=== PATIENT | female | born 1970 | race Caucasian/White ===

== ENCOUNTER 2024-09-02 21:06 | Inpatient (IN) | payer BC ==
[~2024-09-02] VITALS: Ht 172.7 cm; Wt 83.2 kg
[~2024-09-02 21:06] MED LIST: CITA10TA17 PO; GABA-530 PO; LITH150C8 PO; QUET100T34 PO
[2024-09-02] MEDS ORDERED: GABA-530 PO (21:41)
[2024-09-02] MEDS ORDERED: VALB60CA PO (21:41)
[2024-09-02] MEDS ORDERED: QUET-1 PO (22:02)
[2024-09-02] MEDS ORDERED: CITA30CA PO (22:02)
[2024-09-02 22:13] LABS: BILIRUBIN,URINE NEGATIVE (Neg); CLARITY,URINE CLEAR (Clear); COLOR,URINE YELLOW (Yellow); GLUCOSE, URINE NEGATIVE (Neg); KETONES,URINE NEGATIVE (Neg); LEUKOCYTE ESTERASE ,URINE NEGATIVE (Neg); NITRITES, URINE NEGATIVE (Neg); OCCULT BLOOD,URINE NEGATIVE (Neg); PH,URINE 5.5 (4.8-8.0); PROTEIN,URINE NEGATIVE (Neg); UROBILINOGEN,URINE 0.2 E.U/dL (0.2-1.0)
[2024-09-02 22:13] LABS: BASOPHILS % (AUTO) 0.3 % (0-1); EOSINOPHILS # (AUTO) 0.1 X10'3 (0-0.9); EOSINOPHILS % (AUTO) 0.7 % (0-6); HEMATOCRIT 45.4 % (35.0-45.0); HEMOGLOBIN 15.5 g/dl (12.0-16.0); LYMPHOCYTES % (AUTO) 16.2 % (21-51); MEAN CORPUSCULAR HEMOGLOBIN 31.3 PG (27.0-31.0); MEAN CORPUSCULAR HGB CONC 34.2 g/dL (33.0-36.5); MEAN CORPUSCULAR VOLUME 91.6 FL (78-98); MEAN PLATELET VOLUME 9.7 FL (7.4-10.4); MONOCYTES # (AUTO) 0.8 X10'3 (0-0.9); MONOCYTES % (AUTO) 6.4 % (2-12); NEUTROPHILS # (AUTO) 9.6 X10'3 (1.8-7.7); NEUTROPHILS % (AUTO) 76.4 % (42-75); PLATELET COUNT 303 X10'3 (140-440); RED BLOOD COUNT 4.95 X10'6 (4.20-5.60); WHITE BLOOD COUNT 12.5 X10'3 (4.5-11.0)
[2024-09-02 22:21] LABS: UA COLLECTION TYPE VOIDED
[2024-09-02 22:22] LABS: ALANINE AMINOTRANSFERASE 30 U/L (12-78); ALBUMIN 4.4 G/DL (3.4-5.0); ALBUMIN/GLOBULIN RATIO 1.3 (1.1-1.5); ALKALINE PHOSPHATASE 75 IU/L (46-116); ANION GAP 13 (8-16); ASPARTATE AMINO TRANSFERASE 21 U/L (10-37); BILIRUBIN,TOTAL 0.5 MG/DL (0.1-1.0); BLOOD UREA NITROGEN 15 MG/DL (7-18); CALCIUM 9.8 MG/DL (8.5-10.1); CHLORIDE 108 MMOL/L (99-107); CREATININE 0.88 MG/DL (0.40-0.90); ETHANOL < 10 MG/DL (<10); GLUCOSE 100 MG/DL (70-104); POTASSIUM 3.9 MMOL/L (3.5-5.1); SODIUM 142 MMOL/L (135-145); TOTAL CARBON DIOXIDE 20.8 MMOL/L (24-32); TOTAL PROTEIN 7.7 G/DL (6.4-8.2); eCRCL 76 ML/MIN; eGFR 68 ML/MIN
[2024-09-02 22:32] LABS: URINE AMPHETAMINE SCREEN NEGATIVE (Neg); URINE BARBITUATE SCREEN NEGATIVE (Neg); URINE BENZODIAZEPINES SCREEN NEGATIVE (Neg); URINE CANNABINOID SCREEN NEGATIVE (Neg); URINE COCAINE SCREEN NEGATIVE (Neg); URINE METHADONE SCREEN NEGATIVE (Neg); URINE OPIATE SCREEN NEGATIVE (Neg); URINE PHENCYCLIDINE SCREEN NEGATIVE (Neg)
[2024-09-02] MEDS: LORazepam 1 MG tablet PO ONE (23:25)
[2024-09-03] MEDS: lithium carbonate 150mg capsule PO SCH (00:17)
[2024-09-03] MEDS: quetiapine 100mg tablet PO SCH (00:40)
[2024-09-03] MEDS: gabapentin 300mg capsule PO SCH ×2 (00:40→20:06)
[2024-09-03] MEDS: CITALOpram 10mg tablet PO SCH (09:35)
[2024-09-03 13:10] VITALS: BP 96/61; PULSE 76; RESP 12; TEMP 97.6; O2SAT 99
[2024-09-03 14:01] VITALS: RESP 12; O2SAT 99
[2024-09-03] MEDS: gabapentin 300mg capsule PO ONE (14:58)
[2024-09-03] MEDS ORDERED: gabapentin 400mg capsule PO PRN (15:55)
[2024-09-03] MEDS ORDERED: gabapentin 300mg capsule PO SCH (16:00)
[2024-09-03] MEDS ORDERED: acetaminophen 325mg tablet PO PRN ×2 (18:40)
[2024-09-03] MEDS ORDERED: mag hydrox/Alum hydrox/simeth 30ml oral suspension PO PRN (18:40)
[2024-09-03] MEDS ORDERED: magnesium hydroxide 30ml (MOM) UD suspension PO PRN (18:40)
[2024-09-03] MEDS ORDERED: loperamide 2mg capsule PO PRN (18:40)
[2024-09-03 19:27] VITALS: RESP 20; O2SAT 96
[2024-09-03 20:00] VITALS: PULSE 72; RESP 20; TEMP 98; O2SAT 96
[2024-09-04 07:00] VITALS: RESP 12; O2SAT 92
[2024-09-04 08:00] VITALS: BP 96/49; PULSE 56; RESP 12; TEMP 97.6; O2SAT 92
[2024-09-04] MEDS: lithium carbonate 150mg capsule PO ONE (12:48)
[2024-09-04] MEDS: gabapentin 300mg capsule PO PRN (15:16)
[2024-09-04 19:00] VITALS: BP 119/63; PULSE 74; RESP 16; TEMP 98.4; O2SAT 96
[2024-09-04] MEDS: lithium carbonate 150mg capsule PO SCH (20:14)
[2024-09-04] MEDS: gabapentin 400mg capsule PO SCH (20:14)
[2024-09-05 07:17] VITALS: BP 104/56; PULSE 60; RESP 16; TEMP 98.2; O2SAT 93
[2024-09-05 19:30] VITALS: BP 130/58; PULSE 71; RESP 18; TEMP 97.6; O2SAT 96
[2024-09-06 07:30] VITALS: BP 106/53; PULSE 58; RESP 13; TEMP 98.1; O2SAT 96
[2024-09-06 10:01] LABS: BASOPHILS # (AUTO) 0.1 X10'3 (0-0.2); BASOPHILS % (AUTO) 0.7 % (0-1); EOSINOPHILS # (AUTO) 0.2 X10'3 (0-0.9); EOSINOPHILS % (AUTO) 2.1 % (0-6); HEMATOCRIT 42.9 % (35.0-45.0); HEMOGLOBIN 14.8 g/dl (12.0-16.0); LYMPHOCYTES # (AUTO) 1.8 X10'3 (1.1-4.8); LYMPHOCYTES % (AUTO) 21.4 % (21-51); MEAN CORPUSCULAR HEMOGLOBIN 31.3 PG (27.0-31.0); MEAN CORPUSCULAR HGB CONC 34.4 g/dL (33.0-36.5); MEAN CORPUSCULAR VOLUME 90.8 FL (78-98); MEAN PLATELET VOLUME 9.3 FL (7.4-10.4); MONOCYTES # (AUTO) 0.7 X10'3 (0-0.9); MONOCYTES % (AUTO) 8.7 % (2-12); NEUTROPHILS # (AUTO) 5.7 X10'3 (1.8-7.7); NEUTROPHILS % (AUTO) 67.1 % (42-75); PLATELET COUNT 239 X10'3 (140-440); RED BLOOD COUNT 4.72 X10'6 (4.20-5.60); RED CELL DISTRIBUTION WIDTH 13.2 % (11.5-14.5); WHITE BLOOD COUNT 8.5 X10'3 (4.5-11.0)
[2024-09-06] MEDS ORDERED: gabapentin capsule PO (10:37)
[2024-09-06] MEDS ORDERED: GABA-535 PO (10:37)
[2024-09-06] MEDS ORDERED: LITH150C8 PO (10:37)
== END 2024-09-06 14:17 | disposition home or self-care (01) | DRG 885 ==
LOC: ER 21:07 → ADULT MH 09-03 12:00 → UNDOADMIN 09-03 12:00 → ADULT MH 09-03 13:10 → ER 09-03 13:14
PROVIDERS: ADMIT Psychiatry & Neurology Psychiatry; ATTEND Psychiatry & Neurology Psychiatry
PROC: GZHZZZZ Group Psychotherapy (ICD-10-PCS; principal; 2024-09-04)
PROC: GZ51ZZZ Individual Psychotherapy, Behavioral (ICD-10-PCS; 2024-09-04)
DX: F31.9 Bipolar disorder, unspecified (principal); R45.851 Suicidal ideations; F13.20 Sedative, hypnotic or anxiolytic dependence, uncomplicated; D72.829 Elevated white blood cell count, unspecified; F41.0 Panic disorder [episodic paroxysmal anxiety]; K21.9 Gastro-esophageal reflux disease without esophagitis; Z20.822 Contact with and (suspected) exposure to COVID-19; E66.3 Overweight; F41.1 Generalized anxiety disorder; Z82.62 Family history of osteoporosis; Z83.3 Family history of diabetes mellitus; Z79.899 Other long term (current) drug therapy; Z80.3 Family history of malignant neoplasm of breast; Z68.27 Body mass index [BMI] 27.0-27.9, adult
CPT/HCPCS: 36415; 80053; 80178; 80305; 80320; 81003; 83036; 84443; 85025; 87081; 87811; 99285

== ENCOUNTER 2025-02-18 23:06 | Emergency (ER) | payer BC ==
[~2025-02-18] VITALS: Ht 172.7 cm; Wt 86.6 kg
[~2025-02-18 23:06] MED LIST changes: -CITA10TA17 PO; +CITA30CA PO; -GABA-530 PO; +GABA-535 PO; +QUET-1 PO; -QUET100T34 PO; +VALB60CA PO
[2025-02-18 23:16] VITALS: TEMP 97.3
--- NOTE | 2025-02-19 00:59 | Physician Documentation ---
History of Present Illness ~ Chief Complaint: Anxiety Stated Complaint: ANXIETY/SI Time Seen by MD: 00:08 Primary Medical Doctor: Psych through Dr. Glover's office Source: patient Exam Limitations: no limitations HPI Chief Complaint: Panic attack Caveat: None Independent Historians: Paramedics History of Present Illness: Patient is a 54-year-old woman who comes in complaining of severe panic attack that would not go away. Patient's symptoms seemed to have resolved upon arrival. The patient had told the paramedics that she was suicidal. However she is denying suicidal thoughts at this time and she states that she feels safe to go home. She is appreciative of me asking. Patient smiles during her exam. She does not appear to be in any acute distress at this time. Patient states that she felt dizzy and short of breath. Patient states that she felt hot and that she often feels hot and this makes her anxious resulting in anxiety and sometimes panic attacks. Review of systems: All systems were reviewed and are negative except for what is indicated in the history of present illness. Past Medical History: Bipolar illness, anxiety Past Surgical History: Noncontributory Social History: No tobacco use, no alcohol use, no drug use Medications: Reviewed as documented Nursing Notes Allergies: Reviewed as documented in Nursing Notes Medication Reconciliation Allergies: Coded Allergies: No Known Allergies (Unverified , 08/06/24) Scheduled Citalopram Hydrobromide (Citalopram HBr), 30 MG PO DAILY, (Reported) Gabapentin (Gabapentin), 1 CAP PO TID, (Reported) [place] Carbonate (LITHIUM CARBONATE capsule), 300 MG PO BID Quetiapine Fumarate* (Seroquel*), 3 TAB PO HS, (Reported) Valbenazine Tosylate (Ingrezza), 1 CAP PO DAILY, (Reported) Past Medical History Patient History: FH: breast cancer GRANDFATHER OR GRANDMOTHER FH: diabetes mellitus FATHER FH: osteoporosis MOTHER Review of Systems All Other Systems at this time: Reviewed and Negative ROS Patient denies any other acute symptoms other than above. All other systems are negative Physical Exam Vital Signs: RN Vital Signs have been reviewed: Yes, Temperature: 97.3, Source: Oral, Heart Rate: 79, Respiratory Rate: 15, BP: 106/62, Pulse Oximetry: 96, [place] ht: 86.600 Pulse Oximetry Reflects: adequate oxygenation Physical Exam General Appearance: No distress HEENT: Normal OP, moist oral mucosa, PERRL, EOMI Neck: supple, normal ROM, trachea midline Pulmonary: No respiratory distress, CTA, BS equal Cardiac: RRR, no murmur, rub or gallop, GI: nondistended, soft, nontender, normal bowel sounds, no guarding, no rebound Extremities: normal ROM, no swelling, non-tender Skin: intact, dry, warm, no rashes Neuro: AAOx3, speech is clear, no focal motor weakness Psych: normal affect, good eye contact, no apparent hallucination, normal speech Progress Results/Orders Results/Orders Completed Orders - ANAYA THORNTON MD Zolpidem Tablet (Ambien Tablet) (02/19/25 00:30) Vital Signs 02/18/25 23:16 Temp 97.3 Pulse 79 Resp 15 B/P (MAP) 106/62 Pulse Ox 96 Medical Decision Making Findings Differential diagnosis includes but is not limited to: ANXIETY, PANIC ATTACK Emergency department course/medical decision-making: Patient is a 54-year-old woman with anxiety and bipolar illness who presents with having had an anxiety/panic attack that lasted for hours and would not go away. Patient is feeling better now. Patient's psychiatric exam is unremarkable. Patient is currently asymptomatic. Patient has asked for something more for her anxiety. Patient is given Ambien 10 mg p.o.. Patient does not require any lab work or testing. Patient does not meet 1799 criteria. Patient is stable for discharge. Departure Time of Disposition: 00:55 Disposition: 01 HOME / SELF CARE / HOMELESS Impression: Primary Impression: Panic attack Condition: Improved Discharge Instructions: Panic Attack Additional Instructions: FOLLOW UP WITH YOUR DOCTOR AND PSYCHIATRIST NEEDED Education Educated: Patient Educated regarding: diagnosis, treatment Signature Scribe Signature: No scribe Attestation: No scribe ANAYA THORNTON MD Feb 19, 2025 00:58
[2025-02-19] MEDS: zolpidem 5mg tablet PO ONE (01:56)
[2025-02-19 01:58] VITALS: BP 108/72; PULSE 74; RESP 15; O2SAT 96
== END 2025-02-19 02:02 | disposition home or self-care (01) ==
LOC: ER 23:07
DX: F41.0 Panic disorder [episodic paroxysmal anxiety] (principal); F31.9 Bipolar disorder, unspecified
CPT/HCPCS: 99283

== ENCOUNTER 2025-03-04 00:31 | Emergency (ER) | payer BC ==
[~2025-03-04] VITALS: Ht 172.7 cm; Wt 85.6 kg
[2025-03-04 00:37] VITALS: BP 98/56; PULSE 87; RESP 17; O2SAT 98
--- NOTE | 2025-03-04 01:42 | Physician Documentation ---
HPI ~ General Chief Complaint: Medication Request Stated Complaint: PANICK ATTACT Time Seen by MD: 01:41 OK to notify your PCP?: Yes Primary Medical Doctor: Psych through Dr. Glover's office Source: patient, RN/, RN notes reviewed, old records Mode of Arrival: POV Exam Limitations: no limitations History of Present Illness HPI Comments 54 year old female with history of anxiety, suicidal ideation, and panic attacks seen in bed 19 presents to the emergency department seeking medication to help her sleep. She states hat she had been having an anxiety attack earlier at 1800. During this she states she swallowed lots of air and she cannot burp it up which is stressing her out more as she is concerned about distension. Patient denies any other associated symptoms at this time. Patient denies any other alleviating or exacerbating factors. Medication Reconciliation Allergies: Coded Allergies: No Known Allergies (Unverified , 08/06/24) Scheduled Citalopram Hydrobromide (Citalopram HBr), 30 MG PO DAILY, (Reported) Gabapentin (Gabapentin), 1 CAP PO TID, (Reported) [place] Carbonate (LITHIUM CARBONATE capsule), 300 MG PO BID Quetiapine Fumarate* (Seroquel*), 3 TAB PO HS, (Reported) Valbenazine Tosylate (Ingrezza), 1 CAP PO DAILY, (Reported) Past Medical History Past Medical History: *PSYCH*, Anxiety Patient History: FH: breast cancer GRANDFATHER OR GRANDMOTHER FH: diabetes mellitus FATHER FH: osteoporosis MOTHER Review of Systems All Other Systems at this time: Reviewed and Negative ROS As stated above in the HPI, otherwise all systems are reviewed and negative. Physical Exam Physical Exam Vital Signs: Temperature: 97.9, Source: Temporal, Heart Rate: 87, Respiratory Rate: 17, BP: 98/56, Pulse Oximetry: 98, Weight: 85.600 Oxygen Flow Rate: 0 Pulse Oximetry Reflects: adequate oxygenation Physical Exam General: The patient is well developed, well nourished, nontoxic appearing and is in no acute distress. Skin: [place], warm and dry with no rashes. HEENT: Head was normocephalic and atraumatic. Eyes - pupils equal, round, reactive to light and accommodation. Extraocular movements were intact. Conjunctivae were nonicteric. Ears - bilateral tympanic membranes were normal. The mouth and oropharynx were clear with moist mucous membranes. There were no pharyngeal exudates or erythema. Neck: Supple and nontender. There was no jugular venous distention, lymphadenopathy, thyromegaly or masses. Chest: Clear to auscultation bilaterally without wheezes, rales or rhonchi. No accessory muscle use. No dullness to percussion. Heart: Rate regular and rhythmic. S1, S2. No murmurs. Palpation of the chest wall was normal. No rubs or thrills. Abdomen: Soft, nontender and nondistended. Positive bowel sounds. No guarding or rebound. No hepatosplenomegaly or palpable masses. Extremities: No cyanosis, clubbing or edema. The patient moves all extremities. Pulses were equal and symmetric. Neurologic: Cranial nerves II-XII were intact. Sensation was intact to light touch throughout. Motor strength was 5/5 in all four extremities. Deep tendon reflexes were intact in both upper and lower extremities. Psychologic: The patient was oriented to person, place and time. The patient demonstrated appropriate judgement and insight. Progress Results/Orders Results/Orders Vital Signs 03/04/25 00:37 Temp 97.9 Pulse 87 Resp 17 B/P (MAP) 98/56 Pulse Ox 98 O2 Flow Rate 0 Departure Time of Disposition: 01:50 Disposition: 01 HOME / SELF CARE / HOMELESS Impression: Primary Impression: Panic attack Additional Impression: Insomnia Condition: Stable Discharge Instructions: Medical Screening Exam, Panic Attack, [id number] Referrals: NO PRIMARY CARE PROVIDER (PCP) Education Educated: Patient Educated regarding: diagnosis, treatment, prognosis, need for follow up Signature Scribe Signature: Scribed for Jerome Guerrero MD by Roman Leos . 03/04/25 01:50 Attestation: The note accurately reflects work and decisions made by me.Jerome Guerrero MD 03/04/25 01:42 JEROME GUERRERO MD Mar 04, 2025 01:42 ROMAN SHEPHERD Mar 04, 2025 01:50
[2025-03-04] MEDS: zolpidem 5mg tablet PO ONE (02:03)
[2025-03-04 02:07] VITALS: TEMP 97.9
== END 2025-03-04 02:09 | disposition home or self-care (01) ==
LOC: ER 00:32
DX: F41.0 Panic disorder [episodic paroxysmal anxiety] (principal); G47.00 Insomnia, unspecified; Z79.899 Other long term (current) drug therapy
CPT/HCPCS: 99283

== ENCOUNTER 2025-03-19 17:25 | Emergency (ER) | payer BC ==
[~2025-03-19] VITALS: Ht 172.7 cm; Wt 86.4 kg
--- NOTE | 2025-03-19 18:26 | Physician Documentation ---
History of Present Illness ~ Chief Complaint: Anxiety Stated Complaint: "I AM HAVING A PANIC ATTACK AND I NEED A DR NOW" Time Seen by MD: 17:43 OK to notify your PCP?: Yes Primary Medical Doctor: Psych through Dr. Glover's office Source: patient Mode of Arrival: POV Exam Limitations: no limitations HPI 54-year-old female who is brought in by a neighbor due to having a panic attack. Patient reports that she normally takes Ambien for her panic attacks but would be willing to take Ativan. She states she currently is out of her Amb ien right now which is why she was unable to take it to abort her panic attack symptoms on her own at home. She is hoping to get an appointment with her psychiatrist this week to get a refill of her Ambien. She states she last took the Ambien two weeks ago when she had her last panic attack. No depression, SI or HI. Medication Reconciliation Allergies: Coded Allergies: No Known Allergies (Unverified , 03/19/25) Scheduled Citalopram Hydrobromide (Citalopram HBr), 30 MG PO DAILY, (Reported) Gabapentin (Gabapentin), 1 CAP PO TID, (Reported) [place] Carbonate (LITHIUM CARBONATE capsule), 300 MG PO BID Quetiapine Fumarate* (Seroquel*), 3 TAB PO HS, (Reported) Valbenazine Tosylate (Ingrezza), 1 CAP PO DAILY, (Reported) Past Medical History Past Medical History: *PSYCH*, Anxiety Patient History: FH: breast cancer GRANDFATHER OR GRANDMOTHER FH: diabetes mellitus FATHER FH: osteoporosis MOTHER Review of Systems All Other Systems at this time: Reviewed and Negative Physical Exam Vital Signs: Temperature: 97.5, Source: Temporal, Heart Rate: 115, Respiratory Rate: 18, BP: 135/83, Pulse Oximetry: 99, Weight: 86.360 Oxygen Flow Rate: 0 Physical Exam General Appearance: Alert, WD/WN. NAD. HEENT: NCAT, PERRL, EOMI. Neck: Supple, trachea midline. Cardiovascular: RRR. No m/r/g. Lungs: CTAB. Breathing unlabored Extremities: Normal inspection. No edema. Skin: Warm/dry, normal color Neurological: Alert and oriented x4, normal gait. Psychiatric: Affect congruent with mood. Progress Results/Orders Results/Orders Vital Signs 03/19/25 17:27 Temp 97.5 Pulse 115 Resp 18 B/P (MAP) 135/83 Pulse Ox 99 O2 Flow Rate 0 Medical Decision Making Differential Dx:Considerations: Include: Alcohol abuse, Anxiety, Bipolar disorder, Conversion disorder, Depression, Encephaloathy, Homicidal, Panic disorder, Personality disorder, Schizophrenia, Substance abuse, Suicidal, Other Departure Time of Disposition: 18:25 Disposition: 01 HOME / SELF CARE / HOMELESS Impression: Primary Impression: Panic attack Condition: Stable Discharge Instructions: Panic Attack Additional Instructions: F/U WITH PSYCHIATRIST THIS WEEK PLANNED Referrals: NO PRIMARY CARE PROVIDER (PCP) Education Educated: Patient Educated regarding: diagnosis, treatment, need for follow up Signature Scribe Signature: X Attestation: SHELLEY HAN Mar 19, 2025 18:26
[2025-03-19 18:48] VITALS: BP 132/82; PULSE 76; RESP 18; TEMP 98.6; O2SAT 99
== END 2025-03-19 18:53 | disposition home or self-care (01) ==
LOC: ER 17:25
DX: F41.0 Panic disorder [episodic paroxysmal anxiety] (principal); Z79.899 Other long term (current) drug therapy
CPT/HCPCS: 99283

== ENCOUNTER 2025-03-20 19:02 | Emergency (ER) | payer BC ==
[~2025-03-20] VITALS: Ht 172.7 cm; Wt 91.2 kg
--- NOTE | 2025-03-20 19:18 | Physician Documentation ---
HPI ~ General Chief Complaint: Medication Request Stated Complaint: "I AM HAVING A PANIC ATTACK AND ITS ONGOING" Time Seen by MD: 19:13 Primary Medical Doctor: Psych through Dr. Glover's office History of Present Illness HPI Comments Patient presents to the emergency room with chief complaint that she can not sleep. She has tried to follow up with her doctor but they have yet to follow up with her. She was treated 24 hours ago for the same complaint. Medication Reconciliation Allergies: Coded Allergies: No Known Allergies (Unverified , 03/19/25) Scheduled Citalopram Hydrobromide (Citalopram HBr), 30 MG PO DAILY, (Reported) Gabapentin (Gabapentin), 1 CAP PO TID, (Reported) [place] Carbonate (LITHIUM CARBONATE capsule), 300 MG PO BID Quetiapine Fumarate* (Seroquel*), 3 TAB PO HS, (Reported) Valbenazine Tosylate (Ingrezza), 1 CAP PO DAILY, (Reported) Past Medical History Past Medical History: *PSYCH*, Anxiety Patient History: FH: breast cancer GRANDFATHER OR GRANDMOTHER FH: diabetes mellitus FATHER FH: osteoporosis MOTHER Review of Systems ROS All review of systems negative except as per HPI Physical Exam Physical Exam Vital Signs: Temperature: 97.8, Heart Rate: 90, Respiratory Rate: 16, BP: 151/76, Pulse Oximetry: 96, Weight: 91.150 Oxygen Flow Rate: 0 Physical Exam General: Patient is awake, alert, oriented x4 in no acute distress Head: Normocephalic and atraumatic. Eyes: Conjunctival normal. EOMI. PERRL. ENT: Mucous membranes moist. Neck: Supple, trachea is midline. Chest: Clear to auscultation bilaterally without rales, rhonchi, or wheezes. There is no accessory muscle use or retractions. Cardiac: RRR without murmurs, gallops, or rubs. Psych: Cooperative good eye contact, no SI/HI Progress Results/Orders Results/Orders Vital Signs 03/20/25 19:07 Temp 97.8 Pulse 90 Resp 16 B/P (MAP) 151/76 Pulse Ox 96 O2 Flow Rate 0 Medical Decision Making Findings Patient presents to the emergency room with continued anxiety and insomnia. She was just seen here last night. I have explained to her that this is the last time I will be treating her for this symptom and that she needs to follow up with her doctor. She acknowledges the need to do so. No SI/HI and I do not feel she is gravely disabled. Departure Disposition: HOME / SELF CARE / HOMELESS Impression: Primary Impression: Insomnia Condition: Stable Discharge Instructions: Insomnia Additional Instructions: This is the last time I will be treating you for these symptoms. You need to follow up with your doctor. Referrals: NO PRIMARY CARE PROVIDER (PCP) Signature Scribe Signature: No scribe Attestation: The note accurately reflects work and decisions made by me.Pavan Vaughan MD 03/20/25 19:22 PAVAN VAUGHAN MD Mar 20, 2025 19:18
[2025-03-20 19:32] VITALS: BP 150/89; PULSE 88; RESP 18; TEMP 98.6; O2SAT 99
== END 2025-03-20 19:36 | disposition home or self-care (01) ==
LOC: ER 19:03
DX: G47.00 Insomnia, unspecified (principal)
CPT/HCPCS: 99283

== ENCOUNTER 2025-03-30 14:24 | Emergency (ER) | payer BC ==
[~2025-03-30] VITALS: Ht 174 cm; Wt 89.5 kg
[2025-03-30 14:32] VITALS: BP 108/69; PULSE 98; RESP 20; TEMP 97.5; O2SAT 97
--- NOTE | 2025-03-30 15:57 | Physician Documentation ---
History of Present Illness ~ Chief Complaint: Anxiety Stated Complaint: PANIC ATTACK Time Seen by MD: 15:05 Primary Medical Doctor: Psych through Dr. Glover's office HPI Patient is seen today with complaints of anxiety. Patient 1st told me that her prescription of Ambien is due today and she told me very convoluted and confusing story about her going to [facility] to see her provider that prescribes her Ambien that she states she takes for anxiety and she states she got there now early and then left prior to being seen because she got anxious and can stay there anymore. Patient states he took a 60 dollar taxi up to this hospital in hopes of getting a refill of her Ambien. However upon further investigation the patient is admitted to having picked up her Ambien prescription of 60 tablets of the 5 mg Ambien tablets enough for 30 days and she picked that up about nine days ago and patient states she is already out of the medication. Patient states and admits to over taken her Ambien prescription. Patient has no other concern or complaint at this time. She denies any suicidal ideation. She denies any homicidal ideation. Medication Reconciliation Allergies: Coded Allergies: No Known Allergies (Unverified , 03/30/25) Scheduled Citalopram Hydrobromide (Citalopram HBr), 30 MG PO DAILY, (Reported) Gabapentin (Gabapentin), 1 CAP PO TID, (Reported) [place] Carbonate (LITHIUM CARBONATE capsule), 300 MG PO BID Quetiapine Fumarate* (Seroquel*), 3 TAB PO HS, (Reported) Valbenazine Tosylate (Ingrezza), 1 CAP PO DAILY, (Reported) Past Medical History Past Medical History: *PSYCH*, Anxiety Patient History: FH: breast cancer GRANDFATHER OR GRANDMOTHER FH: diabetes mellitus FATHER FH: osteoporosis MOTHER Review of Systems Constitutional: Denies: chills, fever, weakness Eyes: Denies: pain, blurred vision ENT: Denies: ear pain, nose pain, throat pain, mouth pain Respiratory: Denies: cough, shortness of breath Cardiovascular: Denies: chest pain, palpitations Gastrointestinal: Denies: abdominal pain, nausea, vomiting Genitourinary: Denies: burning, dysuria Female Genitalia: Denies: vaginal discharge, pelvic pain Neurological: Denies: headache, dizziness Musculoskeletal: Denies: pain, swelling Integumentary: Denies: rash, lesions Allergic/Immunologic: Denies: hives, itching Hematologic/Lymphatic: Denies: no symptoms reported Psychiatric: Denies: depression, anxiety Physical Exam Vital Signs: Temperature: 97.5, Source: Temporal, Heart Rate: 98, Respiratory Rate: 20, BP: 108/69, Pulse Oximetry: 97, Weight: 89.550 Oxygen Flow Rate: 0 Physical Exam General: Awake and Alert, no acute distress. Pt appears anxious, but is stable, breathing well. HEENT: Conjunctiva pink, Sclera clear, Mucus Membranes moist. Neck: Supple without masses and tenderness. Resp: Respirations are Unlabored. I do not appreciate any stridor or airway obstruction. Lungs clear to auscultation bilaterally. Heart: Regular Rate and rhythm, normal S1 and S2 without murmur, rub or gallop. Abdomen: Soft and non tender no organomegaly Extremities: No cyanosis,clubbing or edema. Skin: Warm and Dry. Progress Results/Orders Results/Orders Completed Orders - VIVIAN ORTA Hydroxyzine Tablet (Atarax Tablet) (03/30/25 15:50) Olanzapine Tablet (Zyprexa Tablet) (03/30/25 16:21) Medications Received in ER Medications (Trade) Dose Ordered Sig/Ramón Route PRN Reason Start Time Stop Time Status Last Admin Dose Admin (Atarax tablet) 50 mg ONCE ONCE PO 03/30/25 15:50 03/30/25 16:01 DC 03/30/25 16:11 50 MG Vital Signs 03/30/25 14:32 Temp 97.5 Pulse 98 Resp 20 B/P (MAP) 108/69 Pulse Ox 97 O2 Flow Rate 0 Medical Decision Making Findings Patient is seen today with complaints of anxiety. Patient 1st told me that her prescription of Ambien is due today and she told me very convoluted and confusing story about her going to [facility] to see her provider that prescribes her Ambien that she states she takes for anxiety and she states she got there now early and then left prior to being seen because she got anxious and can stay there anymore. Patient states he took a 60 dollar taxi up to this hospital in hopes of getting a refill of her Ambien. However upon further investigation the patient is admitted to having picked up her Ambien prescription of 60 tablets of the 5 mg Ambien tablets enough for 30 days and she picked that up about nine days ago and patient states she is already out of the medication. Patient states and admits to over taken her Ambien prescription. Patient has no other concern or complaint at this time. She denies any suicidal ideation. She denies any homicidal ideation. I did have a long conversation and discussion with the patient today. Patient was given dose of hydroxyzine 50 mg in the ED today for her anxiety. Patient will need to follow up with her primary care and psychiatrist for further eval and treatment and I advised patient that she is not to over take her Ambien prescriptions and she needs to work that out with her primary care physician and psychiatrist. Patient will return to ED with any worsening, concerning or changing symptoms. Departure Disposition: HOME / SELF CARE / HOMELESS Impression: Primary Impression: Anxiety attack Additional Impression: Ambien use disorder, mild, abuse Condition: Stable Discharge Instructions: Panic Attack Additional Instructions: I did have a long conversation and discussion with the patient today. Patient was given dose of hydroxyzine 50 mg and Zyprexa 10 mg by mouth in the ED today for her anxiety. Patient will need to follow up with her primary care and psychiatrist for further eval and treatment and I advised patient that she is not to over take her Ambien prescriptions and she needs to work that out with her primary care physician and psychiatrist. Patient will return to ED with any worsening, concerning or changing symptoms. Prescription of Zyprexa 10 mg-15 mg by mouth at night sent to patient's pharmacy to be taken as needed at night for sleep. Referrals: NO PRIMARY CARE PROVIDER (PCP) Prescriptions Olanzapine (Olanzapine) 10 Mg Tablet 1-1.5 TAB PO HS for 15 Days, #23 TAB 0 Refills Prov: VIVIAN ORTA 03/30/25 Signature Scribe Signature: No scribe Attestation: No scribe VIVIAN ORTA Mar 30, 2025 15:57
[2025-03-30] MEDS ORDERED: OLAN-38 PO (16:33)
== END 2025-03-30 16:58 | disposition home or self-care (01) ==
LOC: ER 14:26
DX: F41.0 Panic disorder [episodic paroxysmal anxiety] (principal); F13.10 Sedative, hypnotic or anxiolytic abuse, uncomplicated; Z76.5 Malingerer [conscious simulation]
CPT/HCPCS: 99283; Q0177

== ENCOUNTER 2025-03-30 22:32 | Emergency (ER) | payer BC ==
[~2025-03-30] VITALS: Ht 177.8 cm; Wt 95.0 kg
[~2025-03-30 22:32] MED LIST changes: +OLAN-38 PO
[2025-03-30 23:19] VITALS: TEMP 97.8
--- NOTE | 2025-03-30 23:26 | Physician Documentation ---
History of Present Illness ~ Chief Complaint: Anxiety Stated Complaint: ANXIETY Time Seen by MD: 23:13 OK to notify your PCP?: Yes Primary Medical Doctor: Psych through Dr. Glover's office Source: patient, RN/, RN notes reviewed, old records Mode of Arrival: POV Exam Limitations: no limitations HPI Patient is seen today complaining of anxiety. 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 Patient was seen just earlier today by myself where patient admitted to over taking her prescription of Ambien. Patient received her last prescription of Ambien 5 mg tablets number 60 enough for 30 days and she received that about nine days ago on 03/31/2025 and she states she ran out yesterday. Patient now is stating that if she has to go home today without receiving Ambien or Ativan that she will kill herself by turning on her car and shedding the garage door and suffocating from carbon monoxide poisoning. Guerrero HPI: 54 year old female with history of Ambien abuse presents to the the emergency department seen in bed 07 for complaints of anxiety. She is seeking medication to treat her anxiety, chest tightness, weakness, numbness, and back pain. Of note she was seen 03/22/2025 where she was prescribed 60 days worth of Ambien of which she has used already. Additionally she was evaluated earlier today where she was refused a refill. Medication Reconciliation Allergies: Coded Allergies: No Known Allergies (Unverified , 03/31/25) Scheduled Citalopram Hydrobromide (Citalopram HBr), 30 MG PO DAILY, (Reported) Gabapentin (Gabapentin), 1 CAP PO TID, (Reported) [place] Carbonate (LITHIUM CARBONATE capsule), 300 MG PO BID Olanzapine (Olanzapine), 1-1.5 TAB PO HS Quetiapine Fumarate* (Seroquel*), 3 TAB PO HS, (Reported) Valbenazine Tosylate (Ingrezza), 1 CAP PO DAILY, (Reported) Past Medical History Past Medical History: *PSYCH*, Anxiety Patient History: FH: breast cancer GRANDFATHER OR GRANDMOTHER FH: diabetes mellitus FATHER FH: osteoporosis MOTHER Review of Systems All Other Systems at this time: Reviewed and Negative ROS As stated above in the HPI, otherwise all systems are reviewed and negative. Physical Exam Vital Signs: RN Vital Signs have been reviewed: Yes, Temperature: 97.8, Source: Temporal, Heart Rate: 90, Respiratory Rate: 16, BP: 126/83, Pulse Oximetry: 98, Weight: 95.000 Oxygen Flow Rate: 0 Pulse Oximetry Reflects: adequate oxygenation Physical Exam General: Patient is agitated and anxious. The patient is well developed, well nourished, nontoxic appearing. Skin: [place], warm and dry with no rashes. HEENT: Head was normocephalic and atraumatic. Eyes - pupils equal, round, reactive to light and accommodation. Extraocular movements were intact. Conjunctivae were nonicteric. Ears - bilateral tympanic membranes were normal. The mouth and oropharynx were clear with moist mucous membranes. There were no pharyngeal exudates or erythema. Neck: Supple and nontender. There was no jugular venous distention, lymphadenopathy, thyromegaly or masses. Chest: Chest tightness. Clear to auscultation bilaterally without wheezes, rales or rhonchi. No accessory muscle use. No dullness to percussion. Heart: Rate regular and rhythmic. S1, S2. No murmurs. Palpation of the chest wall was normal. No rubs or thrills. Abdomen: Soft, nontender and nondistended. Positive bowel sounds. No guarding or rebound. No hepatosplenomegaly or palpable masses. Extremities: No cyanosis, clubbing or edema. The patient moves all extremities. Pulses were equal and symmetric. Neurologic: Hyperreflexia Cranial nerves II-XII were intact. Sensation was intact to light touch throughout. Motor strength was 5/5 in all four extremities. Deep tendon reflexes were intact in both upper and lower extremities. Psychologic: The patient was oriented to person, place and time. The patient demonstrated appropriate judgement and insight. Progress Progress Note Upon exam, when she was refused any Ambien she began naming off a variety of symptoms and new issues. When she was given options on how to treat symptoms she stated that if she goes home she will kill herself. Results/Orders Reviewed/noted all lab results: Yes Results/Orders Orders - JEROME GUERRERO MD Electrocardiogram (03/31/25 00:35) Vital Signs 03/30/25 03/30/25 03/31/25 03/31/25 22:43 23:19 00:57 02:33 Temp 98.0 97.8 Pulse 81 90 80 98 Resp 18 16 20 20 B/P (MAP) 144/104 126/83 (97) 130/81 (97) 140/78 Pulse Ox 98 98 98 99 O2 Flow Rate 0 0 Re-Evaluation Re-Evaluation : Re-Evaluation: Unchanged Progress This patient is trying desperately to be drugged up with sedatives if not Ambien. Patient received a two month supply of medications and consumed at nine days that is 5 mg daily if you took it 10 mg a day which the maximum dose at the FDA recommends it would be a 30 day supply consumed a nine days. Patient is unreliable to receive any outpatient medications. She is having withdrawal like symptoms she does not like the way it feels and wants to be treated. Unfortunately patient needs to discontinue her medications. She is hemodynamically stable. There was no instability seen. She is having some difficulty urinating from additional medications given earlier today however she did urinate her medications will metabolize and as far as withdrawing I gave her information regarding the 1st five days where her symptoms will peak but may last for a week or two. Ultimately patient was angry after receiving no medications and was discharged home. EKG/XRAY/CT/US/VASC/MRI EKG : Additional Comment 0055: RACHEL Guerrero interpreted EKG to show sinus rhythm at a rate of 60 with a QTc of 476. Patient had good R wave progression. Medical Decision Making Additional info obtained from: old records Differential Dx:Considerations: Include: Alcohol abuse, Anxiety, Bipolar disorder, Depression, Encephaloathy, Homicidal, Panic disorder, Personality disorder, Schizophrenia, Substance abuse, Suicidal, Other Departure Time of Disposition: 02:08 Disposition: 01 HOME / SELF CARE / HOMELESS Impression: Primary Impression: Chronic anxiety Additional Impressions: Ambien use disorder Withdrawals Condition: Stable Discharge Instructions: Managing Anxiety, Adult Additional Instructions: Ambien withdrawal peaks after 1-5 days, sometimes lasting two weeks. Referrals: NO PRIMARY CARE PROVIDER (PCP) Education Educated: Patient Educated regarding: diagnosis, need for follow up, other Signature Scribe Signature: Scribed for Jerome Guerrero MD by Roman Leos . 03/31/25 00:43 Attestation: The note accurately reflects work and decisions made by me.Jerome Guerrero MD 03/31/25 05:12 VIVIAN ORTA Mar 30, 2025 23:26 ROMAN SHEPHERD Mar 31, 2025 00:39 JEROME GUERRERO MD Mar 31, 2025 05:13
[2025-03-31 02:33] VITALS: BP 140/78; PULSE 98; RESP 20; O2SAT 99
--- NOTE | 2025-03-31 08:04 | ELECTROCARDIOGRAPH REPORT ---
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 Shiloh Baker Measurements Intervals [place] Rate: 80 P: 74 AK: 157 QRS: 89 QRSD: 111 T: 71 QT: 412 QTc: 476 Interpretive Statements Sinus rhythm Probable left atrial enlargement Low voltage, extremity leads Baseline wander in lead(s) V3,V4 Electronically Signed On 03-31-2025 18:16:[address] Shiloh Baker Please click the below link to view image of tracing.
== END 2025-03-31 02:35 | disposition home or self-care (01) ==
LOC: ER 22:33
DX: F41.9 Anxiety disorder, unspecified (principal); F13.10 Sedative, hypnotic or anxiolytic abuse, uncomplicated; R07.9 Chest pain, unspecified
CPT/HCPCS: 93005; 99283

== ENCOUNTER 2025-05-23 16:38 | Emergency (ER) | payer BC ==
[~2025-05-23] VITALS: Ht 172.7 cm; Wt 77.3 kg
--- NOTE | 2025-05-23 17:24 | Physician Documentation ---
History of Present Illness ~ Chief Complaint: Anxiety Stated Complaint: ANXIETY Time Seen by MD: 17:15 Primary Medical Doctor: Psych through Dr. Glover's office HPI 54-year-old female well known to this ED for a history of panic attacks presents having a panic attack today states she has swallowing incessantly and feels as though she is going to . She says she feels hot on the outside in cold on the inside. States that she normally takes hydroxyzine and Seroquel. She says she took two hydroxyzine today and did not have improved symptoms. States that she also did not drive to the ED Denies any SI or HI Day of Onset: May 23, 2025 Medication Reconciliation Allergies: Coded Allergies: No Known Allergies (Unverified , 05/23/25) Scheduled Citalopram Hydrobromide (Citalopram HBr), 30 MG PO DAILY, (Reported) Gabapentin (Gabapentin), 1 CAP PO TID, (Reported) [place] Carbonate (LITHIUM CARBONATE capsule), 300 MG PO BID Olanzapine (Olanzapine), 1-1.5 TAB PO HS Quetiapine Fumarate* (Seroquel*), 3 TAB PO HS, (Reported) Valbenazine Tosylate (Ingrezza), 1 CAP PO DAILY, (Reported) Past Medical History Past Medical History: *PSYCH*, Anxiety Patient History: FH: breast cancer GRANDFATHER OR GRANDMOTHER FH: diabetes mellitus FATHER FH: osteoporosis MOTHER Review of Systems All Other Systems at this time: Reviewed and Negative ROS As stated above in the HPI, otherwise all systems are reviewed and negative. Physical Exam Vital Signs: Temperature: 98.5, Source: Oral, Heart Rate: 88, Respiratory Rate: 18, BP: 141/87, Pulse Oximetry: 97, Weight: 77.270 Oxygen Flow Rate: 0 Physical Exam General: Alert, no apparent distress. HEENT: PERRL, EOMI, no injection, moist mucous membranes. Neurologic: Oriented x4. Psychiatric: anxious appearing Skin: Normal color, warm and dry. No edema, no ecchymosis. Progress Results/Orders Results/Orders Completed Orders - DWAYNE DUPREE NP Diazepam Inj (Valium Inj) (05/23/25 17:20) Medications Received in ER Medications (Trade) Dose Ordered Sig/Ramón Route PRN Reason Start Time Stop Time Status Last Admin Dose Admin (Valium inj) 10 mg ONCE ONCE IM 05/23/25 17:20 05/23/25 17:22 DC 05/23/25 18:24 10 MG Vital Signs 05/23/25 05/23/25 05/23/25 16:45 18:24 19:05 Temp 98.5 98.6 Pulse 88 86 Resp 18 18 18 B/P (MAP) 141/87 140/86 Pulse Ox 97 97 O2 Flow Rate 0 Medical Decision Making Findings Treated this patient for an acute panic attack with the Valium. Once she calmed down I discharge her for further evaluation in the outpatient setting. She was able to obtain transportation Differential Dx:Considerations: Include: Alcohol abuse, Anxiety, Bipolar disorder, Conversion disorder, Depression, Encephaloathy, Homicidal, Panic disorder, Personality disorder, Schizophrenia, Substance abuse, Suicidal, Other Departure Impression: Primary Impression: Anxiety attack Condition: Improved Discharge Instructions: Panic Attack Referrals: NO PRIMARY CARE PROVIDER (PCP) Signature Scribe Signature: ty Attestation: Scribed for Dwayne Dupree Barrel Cap Setter by Dwayne Curry NP . 05/23/25 22:43 DWAYNE DUPREE NP May 23, 2025 17:24
[2025-05-23] MEDS: diazepam inj 5 MG/ML inj. IM ONE (18:24)
[2025-05-23 19:05] VITALS: BP 140/86; PULSE 86; RESP 18; TEMP 98.6; O2SAT 97
== END 2025-05-23 19:09 | disposition home or self-care (01) ==
LOC: ER 16:39
DX: F41.0 Panic disorder [episodic paroxysmal anxiety] (principal)
CPT/HCPCS: 96372; 99283; J3360

== ENCOUNTER 2025-08-12 18:28 | Emergency (ER) | payer BC, OTHER ==
[~2025-08-12] VITALS: Ht 172.7 cm; Wt 90.9 kg
--- NOTE | 2025-08-12 19:03 | ELECTROCARDIOGRAPH REPORT ---
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 MARIJA Beverly Measurements Intervals [place] Rate: 93 P: 83 HI: 146 QRS: 99 QRSD: 91 T: 75 QT: 344 QTc: 428 Interpretive Statements Sinus rhythm Right atrial enlargement Borderline right axis deviation Electronically Signed On 08-14-2025 9:36:[address] MARIJA Beverly Please click the below link to view image of tracing.
[2025-08-12] MEDS ORDERED: LITH150C8 PO (19:05)
[2025-08-12] MEDS ORDERED: HYDR-3686 PO (19:05)
[2025-08-12] MEDS ORDERED: VALB80CA PO (19:06)
[2025-08-12] MEDS ORDERED: PROP10TA10 PO (19:06)
--- NOTE | 2025-08-12 19:09 | Physician Documentation ---
History of Present Illness General Chief Complaint: Mental Health Eval Stated Complaint: SOB/CP Time Seen by MD: 18:55 Primary Medical Doctor: Psych through Dr. Glover's office History of Present Illness Initial Comments This is a 54-year-old female very well known to this emergency department with a multiple visits for various complaints presents today with a complaint of suicidal ideation with the intent to kill herself after finding a gone to do so. She reported feeling very stressed in triage. At the time of my examination she confirms the story. With a respect to somatic complaints she reported some chest pain earlier today but felt very confident that she has a normal EKG in triage and that the chest pain had resolved. She also reports that she is breathing very shallow. Denies any concern for tobacco, alcohol or illicit substances use. Medication Reconciliation Allergies: Coded Allergies: No Known Allergies (Unverified , 05/23/25) Scheduled Citalopram Hydrobromide (Citalopram HBr), 30 MG PO DAILY, (Reported) Stow Carbonate (LITHIUM CARBONATE capsule), 150 MG PO BID, (Reported) Propranolol Hcl* (Inderal*), 1-2 TAB PO BID, (Reported) Quetiapine Fumarate (Seroquel), 400 MG PO HS, (Reported) Valbenazine Tosylate (Ingrezza), 1 CAP PO DAILY, (Reported) Scheduled PRN Hydroxyzine Hcl* (Atarax*), 2 TAB PO BID PRN for for anxiety/agitation, (Reported) Discontinued Medications Gabapentin (Gabapentin), 1 CAP PO TID, (Reported) Discontinued Reason: patient no longer taking Stow Carbonate (LITHIUM CARBONATE capsule), 300 MG PO BID Discontinued Reason: patient no longer taking Olanzapine (Olanzapine), 1-1.5 TAB PO HS Discontinued Reason: patient no longer taking Quetiapine Fumarate* (Seroquel*), 3 TAB PO HS, (Reported) Discontinued Reason: patient no longer taking Valbenazine Tosylate (Ingrezza), 1 CAP PO DAILY, (Reported) Discontinued Reason: patient no longer taking Past Medical History Past Medical History: *PSYCH*, Anxiety Review of Systems ROS 10 point review of systems was performed and unless noted above in HPI is negative for acute process/complaint. Physical Exam Physical Exam Vital Signs: Temperature: 97.4, Source: Temporal, Heart Rate: 89, Respiratory Rate: 16, BP: 118/65, Pulse Oximetry: 96, Weight: 90.900 Physical Exam GENERAL: Awake, alert, oriented, GCS 15, no apparent distress, non-toxic appearing, answers questions, follows commands appropriately. Examined in hallway bed 13. HEENT: Atraumatic, normocephalic, pupils equal, extraocular muscles intact, sclerae anicteric, mucus membranes moist, oropharynx is clear, no stridor. NECK: supple, full active range of motion, trachea midline, no thyromegaly, no lymphadenopathy, no JVD. CARDIOVASCULAR: regular rate/rhythm, no murmurs/gallops/rubs, Pulses are 2+ in all extremities and symmetric. Capillary refill less than 2 seconds. PULMONARY: Nonlabored, good air movement ,no respiratory distress, speaking in full sentences, clear to auscultation bilaterally, no wheezing, no ronchi, no rales, no accessory muscle use. GASTROINTESTINAL: Soft, non-tender, non-distended, normal active bowel sounds, no organomegaly, no pulsatile masses, no CVA tenderness. NEUROLOGIC: Lucid with normal mental status. Normal facial symmetry. Moves all extremities symmetrically and with purpose. No truncal ataxia. Speech is fluid without evidence of dysarthria or aphasia, no focal deficits appreciated. MUSCULOSKELETAL: There is full range of motion of all extremities. There is no joint pain or joint swelling or joint erythema. There is no muscle pain or tenderness or swelling. EXTREMITIES: warm, well-perfused, no cyanosis, no clubbing, no edema, no acute deformities. Skin: warm, dry, no rashes or lesions, no jaundice, no petechiae orpurpura. No ecchymosis. PSYCHIATRIC: Normal affect, normal insight, normal concentration. Focused exam: [] Progress Results/Orders Results/Orders Orders - AKI LAWSON DO Chest,Single View (08/12/25 18:55) Med Rec (08/12/25 18:55) 1799.11 (08/12/25 18:55) Close Observation Level (08/12/25 18:55) Covid19 Binax Poc Result Entry (08/12/25 18:55) Hydroxyzine Tablet (Atarax Tablet) (08/12/25 19:15) Stow Carbonate Capsule (Stow Carbo (08/12/25 20:00) Propanolol Tablet (Inderal Tablet) (08/12/25 20:00) Quetiapine Fumarate Tablet (Seroquel) (08/12/25 21:00) Citalopram Tablet (Celexa Tablet) (08/13/25 08:00) Miscellaneous (Patient's Own Medication) (08/13/25 08:00) Completed Orders - AKI LAWSON DO Electrocardiogram (08/12/25 18:55) Cbc/Diff (08/12/25 18:55) Lipase (08/12/25 18:55) Pt Inr (08/12/25 18:55) PTT (08/12/25 18:55) Chest,Single View (08/12/25 18:55) MG (08/12/25 18:55) TSH (08/12/25 18:55) Free T4 (08/12/25 18:55) CMP (08/12/25 18:55) Hs Troponin I W Calculations (08/12/25 18:55) Hs Troponin I W Calculations (08/12/25 20:55) Urinalysis (08/12/25 18:55) Hcg, Ur Ql (08/12/25 18:55) Drug Screen, Urine (08/12/25 18:55) Ethanol (08/12/25 18:55) Stow Level (08/12/25 19:09) Medications Received in ER Medications (Trade) Dose Ordered Sig/Ramón Route PRN Reason Start Time Stop Time Status Last Admin Dose Admin (lithium carbonate capsule) 150 mg BID PO 08/12/25 20:00 08/12/25 20:18 150 MG (Seroquel) 400 mg HS PO 08/12/25 21:00 08/12/25 20:18 400 MG Vital Signs 08/12/25 18:30 Temp 97.4 Pulse 89 Resp 16 B/P (MAP) 118/65 Pulse Ox 96 Laboratory Tests Test 08/12/25 19:10 08/12/25 19:11 08/12/25 19:27 08/12/25 21:06 Urine Specimen Description Cln catch midstream Urine Color Yellow Urine Clarity Clear Urine pH 6.0 Urine Specific [place] >=1.030 Urine Protein Negative Urine Glucose (UA) Negative Urine Ketones Negative Urine Occult Blood Negative Urine Nitrite Negative Urine Bilirubin Negative Urine Urobilinogen 0.2 Urine Leukocyte Esterase Negative Volume Urine Centrifuged 3 ml Urine HCG, Qualitative Negative Urine Comment Low volume Urine Opiates Screen Negative Urine Methadone Screen Negative Urine Fentanyl Screen Negative Urine Barbiturates Screen Negative Urine Phencyclidine Screen Negative Urine Amphetamines Screen Negative Urine Benzodiazepines Screen Negative Urine Cocaine Screen Negative Urine Cannabinoids Screen Negative Drug Screen Comment SARS-CoV-2 Antigen (Rapid) Negative White Blood Count 13.3 H Red Blood Count 5.25 Hemoglobin 14.8 Hematocrit 44.7 Mean Corpuscular Volume 85.1 Mean Corpuscular Hemoglobin 28.2 Mean Corpuscular Hemoglobin Concent 33.1 Red Cell Distribution Width 15.3 H Platelet Count 353 Mean Platelet Volume 7.8 Neutrophils (%) (Auto) 74.3 Lymphocytes (%) (Auto) 17.2 L Monocytes (%) (Auto) 6.3 Eosinophils (%) (Auto) 1.8 Basophils (%) (Auto) 0.4 Neutrophils # (Auto) 9.9 H Lymphocytes # (Auto) 2.3 Monocytes # (Auto) 0.8 Eosinophils # (Auto) 0.2 Basophils # (Auto) 0.1 CBC Comment Prothrombin Time 10.4 INR International Normalized Ratio 1.0 Activated Partial Thromboplast Time 25 Coagulation Comments Sodium Level 143 Potassium Level 4.3 Chloride Level 112 H Carbon Dioxide Level 22.0 L Anion Gap 9 Blood Urea Nitrogen 18 Creatinine 0.81 Estimated GFR/1.73 m2 74 BUN/Creatinine Ratio 22.2 H Glucose Level 117 H Calcium Level 9.4 Magnesium Level 2.1 Total Bilirubin 0.4 Aspartate Amino Transf (AST/SGOT) 21 Alanine Aminotransferase (ALT/SGPT) 26 Alkaline Phosphatase 70 Troponin I High Sensitivity 5 5 Total Protein 7.5 Albumin 4.2 Globulin 3.3 Albumin/Globulin Ratio 1.3 Lipase 61 Thyroid Stimulating Hormone (TSH) 2.56 Free Thyroxine 0.94 Chemistry Comments Stow Level 0.4 L Ethyl Alcohol Level < 10 Troponin I High Sens Percent Delta 0 Troponin I Hi Sens Absolute Change 0 EKG/XRAY/CT/US/VASC/MRI EKG : Additional Comment EKG was obtained and interpreted by myself showing sinus rhythm, rate of 93, normal SD interval, narrow QRS, no QT prolongation, normal axis, no STEMI. Slight J-point depression in inferior leads. Heart Score: Heart Score Response (Comments) Value History Slightly Suspicious 0 EKG Repolarization Disturb 1 Age 45-64 1 Risk Factors No known risk factors 0 Troponin Normal limit 0 Total 2 Medical Decision Making Additional information obtaine: old records Findings Facility Status: [facility], [facility] process The plan was discussed with the patient, who demonstrates clear understanding of the plan and is in agreement with the plan unless otherwise noted in the chart. All questions have been answered, all concerns were addressed unless otherwise documented. I was available throughout their ED stay for frequent reassessment and questions. Differential Diagnoses (considered and possible or likely): [With respect to her suicidal statements, this is a could represent attention seeking behavior, stress reaction, less likely a true suicidality. Unlikely homicidal ideation. Unlikely alcohol intoxication drug toxidrome. The patient does have known history of drug-seeking behavior with a respect to benzodiazepines. With a respect to chest pain, Differential diagnosis considered includes chest wall pain, pleurisy, pneumonia, pulmonary embolus, GERD, esophagitis, gastritis, anxiety, stress reaction, costochondritis, acute coronary syndrome, aortic dissection, pericarditis, myocarditis, or pneumothorax.] ??Differential Diagnoses (considered and unlikely, not requiring evaluation currently): [Aortic/great vessels dissection was considered but it is unlikely based on absence of ripping, tearing, migratory chest pain, absence of syncope or focal neurologic deficits, physical examination indicating equal and symmetric pulses.] MDM Data Please see [facility] for the following: Independent Historians and external Records Review. Historian: [Patient] Independent Historians: ?[Record review] Medication Management: [Reviewed medication list] Social History and determinants: [Reviewed] Please see the body of the note for the following: Any independent interpretations of ECG, imaging studies. All vitals signs/haemodynamics, ordered tests were independently reviewed and interpreted by myself. Nursing triage complaint and vitals reviewed, additional nursing notes were reviewed as available and I agree unless otherwise noted or documented in contradiction in the chart Vital Signs: Independently reviewed Labs: Independently interpreted Imaging: Independently interpreted Old Medical Records: Independently reviewed, see [facility] for relevant summary and information Pulse Oximetry: [99%] interpreted as [normal on room air] by me Additionally notably showing: [Hemodynamics reviewed. The patient is not febrile, not tachycardic, no evidence of hypotension respiratory distress. CBC shows mild leukocytosis, normal hemoglobin, normal platelets. Coagulation tells with a remarkable. Chemistry was notable for slight dehydration. Initial repeat troponins are negative. Thyroid studies normal. Lipase was normal. Toxicology is negative for drugs of abuse. Stow is low, subtherapeutic. UA is nondiagnostic for UTI. COVID isn't negative.] Tests considered but not ordered include: [Imaging has been considerably does not appear to be necessary] Social Determinants of Health Impact: Patient was evaluated in [facility], [facility] [place] to healthcare due to below par ratio of patient to medical providers. [] Comorbid Conditions Impacting Present Evaluation and Care/Treatment: [Extensive psychiatric history] Management Discussions with other Healthcare Providers: [Mental health services] Treatment and Disposition Medication Management (Given or considered): []. See EMR for details Consideration for Hospitalization/Escalation/Deescalation of Care: Admission for observation has been considered, [however the patient is able to tolerate p.o., their symptoms are controlled, they are able to rely on oral medications, and their chief complaint/diagnosis can be managed on outpatient basis.] Her chest pain was brief, has a resolved. Her heart score is 2 ?ED Course:?[The patient is medically cleared for psychiatric evaluation] ?Shared decision making:?[] Code status:?FULL Please see the full Electronic Medical Record for full details of nursing documentation, medications list, other records of complete past medical history and conditions, vital signs, laboratory studies, and any radiologic study interpretations by radiologists. Portions of this note were completed using [employer] dictation software and as a result there may exist minor errors in spelling. I have reviewed elements of past family and social history and agree as included in note. Differential Diagnosis See body of main note for differential diagnosis Departure Disposition: 30 STILL A PATIENT Impression: Primary Impression: Suicidal ideation Additional Impression: Chest pain Referrals: NO PRIMARY CARE PROVIDER (PCP) Signature Scribe Signature: No scribe Attestation: The note accurately reflects work and decisions made by me.Aki Lawson DO 08/12/25 19:07 AKI LAWSON DO Aug 12, 2025 19:09
[2025-08-12 19:37] LABS: LEUKOCYTE ESTERASE ,URINE NEGATIVE (Neg); NITRITES, URINE NEGATIVE (Neg); OCCULT BLOOD,URINE NEGATIVE (Neg); URINE HCG NEGATIVE (NEG)
--- NOTE | 2025-08-12 19:39 | RADIOLOGY REPORT ---
EXAM: DI CHEST,SINGLE VIEW TECHNIQUE: Single frontal chest radiograph CLINICAL HISTORY: chest pain COMPARISON: None FINDINGS/IMPRESSION: The lungs are clear. The cardiomediastinal silhouette is unremarkable. No pleural effusion or pneumothorax. No acute osseous abnormality.
[2025-08-12 19:40] LABS: MEAN PLATELET VOLUME 7.8 FL (7.4-10.4); RED CELL DISTRIBUTION WIDTH 15.3 % (11.5-14.5)
[2025-08-12 19:44] LABS: UA COLLECTION TYPE CLN CATCH MIDSTREAM
[2025-08-12 19:49] LABS: APTT 25 SECONDS (22-32); INR 1.0 INR
[2025-08-12 19:52] LABS: CREATININE 0.81 MG/DL (0.40-0.90); TOTAL CARBON DIOXIDE 22.0 MMOL/L (24-32); eCRCL 82 ML/MIN; eGFR 74 ML/MIN
[2025-08-12 19:58] LABS: URINE AMPHETAMINE SCREEN NEGATIVE (Neg); URINE BARBITUATE SCREEN NEGATIVE (Neg); URINE BENZODIAZEPINES SCREEN NEGATIVE (Neg); URINE CANNABINOID SCREEN NEGATIVE (Neg); URINE COCAINE SCREEN NEGATIVE (Neg); URINE METHADONE SCREEN NEGATIVE (Neg); URINE OPIATE SCREEN NEGATIVE (Neg); URINE PHENCYCLIDINE SCREEN NEGATIVE (Neg)
[2025-08-12] MEDS: propranolol 10mg tablet PO SCH (20:00)
[2025-08-12 20:03] LABS: ETHANOL < 10 MG/DL (<10)
[2025-08-13 07:53] VITALS: BP 94/47; PULSE 55; RESP 17; TEMP 97.8; O2SAT 96
[2025-08-13] MEDS: VALBENAZINE TOSYLATE 80 MG PO SCH (08:00)
== END 2025-08-13 13:27 | disposition home or self-care (01) ==
LOC: ER 18:29
DX: R45.851 Suicidal ideations (principal); R07.9 Chest pain, unspecified; F41.9 Anxiety disorder, unspecified; Z79.899 Other long term (current) drug therapy; Z20.822 Contact with and (suspected) exposure to COVID-19
CPT/HCPCS: 36415; 71045; 80053; 80178; 80305; 80320; 81003; 81025; 83690; 83735; 84439; 84443; 84484; 85025; 85610; 85730; 87811; 93005; 99285; Q0177